=== PATIENT | male | born 1995 | race Caucasian/White ===

== ENCOUNTER 2020-03-26 06:14 | Day surgery (SDC) | payer BC, SELFPAY ==
[~2020-03-26] VITALS: Ht 185.4 cm; Wt 113.4 kg
[2020-03-26] MEDS ORDERED: CEFAZOLIN SOD 1 GM in D5W 50 ML IV ONE (07:00)
[2020-03-26] MEDS ORDERED: NS 1000 ML IV.SOLN IV ONE (07:45)
[2020-03-26] MEDS ORDERED: LR 1,000 ML IV.SOLN IV ONE (07:45)
[2020-03-26] MEDS ORDERED: GLYCOPYRROLATE 0.2 MG/ML VIAL IJ ONE (07:45)
[2020-03-26] MEDS ORDERED: MIDAZOLAM HCL 5 MG/5 ML VIAL IVP ONE (07:45)
[2020-03-26] MEDS ORDERED: SUCCINYLCHOLINE CHLORIDE 20 MG/ML(QUELICIN) IVP ONE (07:45)
[2020-03-26] MEDS ORDERED: PROPOFOL 200MG/ 20ML VIAL (DIPRIVAN) IV ONE (07:45)
[2020-03-26] MEDS ORDERED: KETOROLAC TROMETHAMINE 30 MG VIAL IVP ONE (07:45)
[2020-03-26] MEDS ORDERED: PHENTOLAMINE MESYLATE 5 MG VIAL INJ ONE (07:45)
[2020-03-26] MEDS ORDERED: NEOSTIGMINE METHYLSULFATE 1 MG/ML, 10 ML VIAL IM ONE (07:45)
[2020-03-26] MEDS ORDERED: ROCURONIUM BROMIDE 10 MG/ML (ZEMURON) IV ONE (07:45)
[2020-03-26] MEDS ORDERED: NS IRRIG SOLN 1000 ML IR ONE (07:45)
[2020-03-26] MEDS ORDERED: ISOVUE-300 (IOPAMIDOL) 100 ML INFUS..BTL IV ONE (07:45)
[2020-03-26] MEDS ORDERED: DEXAMETHASONE SOD PHOSPHATE 4 MG/ML VIAL IVP ONE (07:45)
[2020-03-26] MEDS ORDERED: SEVOFLURANE 15 MIN GAS INH ONE (07:45)
[2020-03-26] MEDS ORDERED: BUPIVACAINE /PF 0.25% 30 ML VIAL INJ ONE (07:45)
[2020-03-26] MEDS ORDERED: fentaNYL CITRATE 250 MCG/5 ML AMP IV ONE (07:45)
[2020-03-26] MEDS ORDERED: KETOROLAC TROMETHAMINE 30 MG VIAL IVP PRN (09:00)
[2020-03-26] MEDS ORDERED: IBUPROFEN 600 MG TABLET PO ONE (09:00)
[2020-03-26] MEDS ORDERED: METOCLOPRAMIDE HCL 10 MG/2 ML VIAL IVP PRN (09:00)
[2020-03-26] MEDS ORDERED: HYDROmorphone 1 MG INJ. 1 MG/ML AMPUL IVP PRN ×2 (09:00→09:15)
[2020-03-26] MEDS ORDERED: D5/0.45 NS 1,000 ML IV SCH (09:15)
[2020-03-26] MEDS ORDERED: HYDROcodone/ACETAMIN 5-325 MG TAB (NORCO/ VICODIN) PO PRN ×2 (09:15)
[2020-03-26] MEDS ORDERED: HYDROcodone/ACETAMIN 5-325 MG TAB (NORCO/ VICODIN) ONE (10:38)
[2020-03-26 10:42] VITALS: BP_SYST 136
== END 2020-03-26 11:30 | disposition home or self-care (01) ==
LOC: SDS 06:14
PROVIDERS: ATTEND Colon & Rectal Surgery
DX: K80.20 Calculus of gallbladder without cholecystitis without obstruction (principal); Z20.828 Contact with and (suspected) exposure to other viral communicable diseases
CPT/HCPCS: 47563; 74300; 88304; C1727; C1758; J0330; J0690; J1100; J1885; J2250; J2704; J2710; J2760; J3010; J3490 ×2; J7030; J7060; J7120; Q9967 ×2; U0003; 76000